=== PATIENT | female | born 1985 | race Caucasian/White ===

== ENCOUNTER → 2017-03-28 | Outpatient (CLI) | payer OTHER ==
--- NOTE | 2017-03-28 09:57 | WOMENS IMAGING REPORT ---
EXAM DESCRIPTION: U/S ABDOMEN TOTAL COMPLETED DATE/TIME: 03/28/2017 8:42 am REASON FOR STUDY: VENTRAL HERNIA WITHOUT OBSTRUCTION K43.9 VENTRAL HERNIA WITHOUT OBSTRUCTION OR GA NGRENE COMPARISON: None. TECHNIQUE: Dynamic and static grayscale images acquired of the abdomen and recorded on PACS. Additio nal selected color Doppler and spectral images recorded. LIMITATIONS: Midline bowel gas FINDINGS: PANCREAS: Midline pancreas unremarkable LIVER: No masses. Echotexture normal. LIVER VASCULATURE: Normal directional flow of the main portal vein and hepatic veins. GALLBLADDER: No stones. Normal wall thickness. No pericholecystic fluid. ULTRASOUND-DETECTED BELTRAN'S SIGN: Negative. INTRAHEPATIC DUCTS AND COMMON DUCT: CBD and intrahepatic ducts normal caliber. No filling defects. INFERIOR VENA CAVA: Normal flow. AORTA: Not well seen due to midline bowel gas RIGHT KIDNEY: Normal size. Normal echogenicity. No solid or suspicious masses. No hydronephros is. No calcifications. LEFT KIDNEY: Normal size. Normal echogenicity. No solid or suspicious masses. No hydronephrosi s. No calcifications. SPLEEN: Normal size. No solid masses. PERITONEAL AND PLEURAL SPACES: No ascites or effusions. OTHER: Just superior to the umbilicus, a well-circumscribed fatty nodule is present measuring 4 x 3 c m in size, this is likely a ventral hernia containing omental fat. Anterior abdominal wall lipoma is possible. Consider CT for followup. IMPRESSION: Fat containing ventral hernia versus lipoma, 4 x 3 cm in size. Otherwise unremarkable abdominal ultrasound TECHNICAL DOCUMENTATION: JOB ID: [id number]- All Rights Reserved
== END ==
LOC: WI 07:44
PROVIDERS: ATTEND Physician Assistant
DX: K43.9 Ventral hernia without obstruction or gangrene (principal)
CPT/HCPCS: 76700

== ENCOUNTER 2017-04-12 14:29 | Day surgery (SDC) | payer OTHER ==
[~2017-04-12 14:29] MED LIST: ACETAMINOPHEN 325 MG TABLET PO PRN; CEFAZOLIN 2 GM/D5W RTU 2 GM/50 ML RTUPB IV PRN; GLYCOPYRROLATE INJ 0.4 MG/2 ML VIAL ONE; LACTATED RINGERS 1000 ML IV PRN; LIDOCAINE 0.5% INJ-PF (5 MG/ML) 50 ML SDV SUBCUT PRN; LIDOCAINE 2% INJ-PF (20 MG/ML) 2 ML AMPUL ONE; NEOSTIGMINE METHYLSULFATE 10 MG/10 ML VIAL ONE; ROCURONIUM BROMIDE INJ 50 MG/5 ML VIAL IV ONE; SUCCINYLCHOLINE CHLORIDE INJ 200 MG/10 ML VIAL ONE
[2017-04-12] MEDS ORDERED: BUPIVACAINE HCL 0.25 % INJ/PF (2.5 MG/1 ML) 30 ML VIAL ONE (15:34)
[2017-04-12] MEDS ORDERED: ONDANSETRON HCL INJ/PF 4 MG/2 ML SDV ONE (15:55)
[2017-04-12] MEDS ORDERED: DEXAMETHASONE SOD PHOSPHATE INJ 4 MG/1 ML VIAL ONE (15:55)
[2017-04-12] MEDS ORDERED: FENTANYL CITRATE INJ/PF 100 MCG/2 ML AMPUL ONE ×2 (15:55→18:37)
[2017-04-12] MEDS ORDERED: MIDAZOLAM 2 MG/2 ML INJ ONE (15:55)
[2017-04-12] MEDS ORDERED: ACETAMINOPHEN 100 ML IV ONE (15:56)
[2017-04-12] MEDS ORDERED: HYDROMORPHONE HCL INJ/PF 2 MG/ML AMPULE ONE (15:56)
[2017-04-12] MEDS ORDERED: PROPOFOL INJ 200 MG/20 ML VIAL IV ONE (15:56)
[2017-04-12] MEDS ORDERED: MEPERIDINE HCL/PF INJ 25 MG/1 ML DISP.SYRIN IV PRN (17:59)
[2017-04-12] MEDS ORDERED: PROMETHAZINE HCL INJ 25 MG/1 ML VIAL IV PRN (17:59)
[2017-04-12] MEDS ORDERED: DIPHENHYDRAMINE HCL 50 MG/ML VIAL IV PRN (17:59)
[2017-04-12] MEDS ORDERED: FENTANYL CITRATE INJ/PF 100 MCG/2 ML AMPUL IV PRN ×3 (17:59)
--- NOTE | 2017-04-12 18:28 | Operative Report ---
Operative Report DATE OF SURGERY: 04/12/17 PREOPERATIVE DIAGNOSIS: Ventral hernia POSTOPERATIVE DIAGNOSIS: Ventral hernia OPERATION: Open ventral hernia repair SURGEON: RAJESH ELMORE ANESTHESIA: GA TISSUE REMOVED OR ALTERED: Hernia sac COMPLICATIONS: None ESTIMATED BLOOD LOSS: Minimal INTRAOPERATIVE FINDINGS: About 5 cm above the umbilicus a 1.5 cm fascial defect with herniated preperitoneal fat. PROCEDURE: Informed consent was obtained. Patient was brought to the operating room placed on the operating table in supine position. After satisfactory induction of general anesthesia patient's abdomen was prepped and draped in usual sterile fashion. Palpable lump was noted few centimeters above the umbilicus. A transverse incision was made overlying this region dissection was carried down were a very thick hernia sac was identified. It was dissected away from the surrounding structures. It was opened revealing no incarcerated contents. The hernia sac was very thickened with preperitoneal fat. I was able to insert my finger into the peritoneal cavity and there were no adhesions around this area. Specifically no bowel involvement with the hernia. The hernia sac was excised with electrocautery maintaining excellent hemostasis. The fascial defect measured only about 1.5 cm in size. Therefore primary repair was performed with interrupted Ethibond sutures. The repair came together well in a transverse direction with no tension. Hemostasis appeared excellent. Marcaine was injected at the operative site. The wound was closed with deep dermal interrupted Vicryl sutures followed by running subcuticular Monocryl suture. Patient tolerated procedure well with no apparent complications and was taken to the recovery area in stable condition.
[2017-04-12] MEDS ORDERED: RINGERS SOLUTION,LACTATED 1,000 ML IV PRN (18:30)
[2017-04-12] MEDS ORDERED: OXYCODONE-ACETAMINOPHEN 5-325 MG TABLET PO PRN (18:30)
[2017-04-12] MEDS ORDERED: ONDANSETRON HCL INJ/PF 4 MG/2 ML SDV IV PRN (18:30)
--- NOTE | 2017-04-12 18:30 | PDOC DISCHARGE SUMMARY ---
Discharge Summary (SDC) - Discharge Final Diagnosis: Ventral hernia. Date of Surgery: 04/12/17 Discharge Date: 04/12/17 Condition: Good Treatment or Instructions: Ventral hernia repair. May discharge patient home when met discharge criteria. Stay active but avoid strenuous activity. May shower in 2 days. Keep Steri- Strips on. Follow-up with me in 2 weeks. Prescriptions: Oxycodone HCl/Acetaminophen [Percocet 5-325 mg Tablet] 1 tab PO ASDIR PRN #15 tablet PRN Reason: For Pain Referrals: MICAH VALENTE MD [Primary Care Provider] - Discharge Diet: As Tolerated Discharge Activity: Activity As Tolerated - Stay active but avoid strenuous activity. Report the Following to Your Physician Immediately: Unusual Bleeding, Redness, Drainage-Foul Smelling
[2017-04-12] MEDS ORDERED: PROMETHAZINE HCL INJ 25 MG/1 ML VIAL ONE (18:32)
[2017-04-12 20:03] VITALS: BP 128/84
== END 2017-04-12 20:02 | disposition home or self-care (01) ==
LOC: OROUT 14:29
PROVIDERS: ATTEND Surgery
PROC: 0WQF0ZZ Repair Abdominal Wall, Open Approach (ICD-10-PCS; principal; 2017-04-12 16:30)
DX: K46.9 Unspecified abdominal hernia without obstruction or gangrene (principal); R19.00 Intra-abdominal and pelvic swelling, mass and lump, unspecified site; F17.210 Nicotine dependence, cigarettes, uncomplicated; K21.9 Gastro-esophageal reflux disease without esophagitis; E66.9 Obesity, unspecified; K43.9 Ventral hernia without obstruction or gangrene; Z68.41 Body mass index [BMI] 40.0-44.9, adult; Z79.899 Other long term (current) drug therapy
CPT/HCPCS: 81025; 88302 ×2; 49560; J2250; J3490 ×2; J1100; J3010; J1170; J2550; J0330; J2405; J2704; J0690; J0131; 752

== ENCOUNTER → 2017-04-25 | Outpatient (CLI) | payer OTHER ==
--- NOTE | 2017-04-25 15:08 | RADIOLOGY REPORT (SQ) ---
EXAM DESCRIPTION: LUMBAR SPINE COMPLETE COMPLETED DATE/TIME: 04/25/2017 2:03 pm REASON FOR STUDY: LOW BACK PAIN M54.5 LOW BACK PAIN M54.2 CERVICALGIA COMPARISON: None. NUMBER OF VIEWS: Five views including obliques. TECHNIQUE: AP, lateral, oblique, and sacral radiographic images acquired of the lumbar spine. LIMITATIONS: None. FINDINGS: MINERALIZATION: Normal. SEGMENTATION: Normal. No transitional anatomy. ALIGNMENT: Normal. VERTEBRAE: Maintained height. No fracture or worrisome bone lesion. DISCS: Preserved height. No significant osteophytes or end plate irregularity. POSTERIOR ELEMENTS: Bilateral mild facet arthropathy at L5-S1. HARDWARE: None in the spine. PARASPINAL SOFT TISSUES: Normal. PELVIS: Not completely included in the field of view. Bilateral vacuum phenomenon at the SI joints OTHER: No other significant finding. IMPRESSION: Lower lumbar facet arthropathy. Bilateral SI joint arthropathy. TECHNICAL DOCUMENTATION: JOB ID: [id number] [employer]- All Rights Reserved
--- NOTE | 2017-04-25 15:09 | RADIOLOGY REPORT (SQ) ---
EXAM DESCRIPTION: C SP 4 OR 5 VIEWS COMPLETED DATE/TIME: 04/25/2017 2:03 pm REASON FOR STUDY: CERVICALGIA M54.5 LOW BACK PAIN M54.2 CERVICALGIA COMPARISON: None. NUMBER OF VIEWS: Five views. TECHNIQUE: AP, lateral, obliques and odontoid radiographic images acquired of the cervical spine. LIMITATIONS: None. FINDINGS: MINERALIZATION: Normal. ALIGNMENT: Reversal of cervical curvature from muscle spasm VERTEBRAE: Vertebral bodies of normal height. DISCS: No significant osteophytes or sclerosis. Disc height maintained. FORAMINA: No osteophytes or foraminal narrowing. LATERAL AND POSTERIOR ELEMENTS: Facets, lateral masses and spinous processes without significant find ings. HARDWARE: None in the spine. SOFT TISSUES: No masses or calcifications. Lung apices clear. OTHER: No other significant finding. IMPRESSION: Reversal of cervical curvature from muscle spasm. No acute fracture or malalignment. No significant foraminal bony stenosis TECHNICAL DOCUMENTATION: JOB ID: [id number] [employer] All Rights Reserved
== END ==
LOC: OD 13:32
PROVIDERS: ATTEND Physician Assistant
DX: M54.5 Low back pain (principal); M54.2 Cervicalgia
CPT/HCPCS: 72050; 72110